=== PATIENT | female | born 1935 | race Caucasian/White ===

== ENCOUNTER 2022-07-19 10:54 | Emergency (ER) | payer OTHER ==
[~2022-07-19] VITALS: Ht 121.9 cm; Wt 59.9 kg
[~2022-07-19 10:54] MED LIST: ALENDRONATE SOD70 MG PO; METOPROLOL TART50 MG PO; NAPROXEN500 MG PO; SYNTHROID88 MCG PO; VITAMIN D21250 MCG PO
== END 2022-07-19 18:31 | disposition home or self-care (01) ==
LOC: ER 10:54
DX: K52.9 Noninfective gastroenteritis and colitis, unspecified (principal)

== ENCOUNTER 2024-06-26 09:07 | Emergency (ER) | payer OTHER ==
[~2024-06-26] VITALS: Ht 152.4 cm; Wt 59.0 kg
[~2024-06-26 09:07] MED LIST changes: +PREDNISONE 5MG PO
[2024-06-26 09:29] VITALS: O2SAT 99
[2024-06-26] MEDS ORDERED: ORPHENADRINE CITRATE 30 MG/ML AMPUL IM STA (10:15)
[2024-06-26] MEDS ORDERED: KETOROLAC TROMETHAMINE 30 MG VIAL IM STA (10:15)
[2024-06-26 10:44] VITALS: BP 150/70
== END 2024-06-26 10:45 | disposition home or self-care (01) ==
LOC: ER 09:09
DX: M43.6 Torticollis (principal)
CPT/HCPCS: 96372; 99282; J1885; J2360